=== PATIENT | male | born 1975 | race American Indian/Alaskan Native ===

== ENCOUNTER 2021-01-14 18:58 | Emergency (ER) | payer MEDICAID ==
[2021-01-14] MEDS ORDERED: KETOROLAC 30 MG/1 ML INJ IV ONE (19:32)
--- NOTE | 2021-01-14 19:35 | Emergency Department Report ---
ED General Adult HPI - General Chief complaint: Earache Stated complaint: EAR PAIN/SWELLING Source: patient Mode of arrival: Ambulatory Limitations: No Limitations - History of Present Illness Initial comments: Patient is a 45-year-old -Portuguese male with no past medical history presents to the ED with complaint of acute onset persistent severe left ear pain for the last 3 weeks. Patient states that he has been taking [id number] medications for pain initially and also completed a course of azithromycin that was prescribed by his primary care physician with no relief. Patient states that in the last 5 days, the pain of the right ear has worsened and he noticed that the posterior left ear was getting swollen with severe pain in the last 2 days. States that his symptoms got worse in the last 12 hours and he decided come to the ED for evaluation. Patient denies headache, dizziness, nausea, vomiting, fever, chills, cough, sore throat, traumatic injury or hearing loss. MD Complaint: left ear pain; swollen painful postauricular lymph nodes -: Sudden, week(s) (3) Location: head, face, left (left ear pain) Radiation: non-radiation Severity scale (0 -10): 8 Quality: aching, sharp Consistency: constant Improves with: none Worsens with: none Associated Symptoms: denies other symptoms, headaches. denies: confusion, chest pain, cough, diaphoresis, fever/chills, loss of appetite, malaise, nausea/vomiting, seizure, shortness of breath, syncope, weakness, other Treatments Prior to Arrival: none - Related Data Previous Rx's Medication Instructions Recorded Last Taken Type Ciprofloxacin HCl/Dexameth 1 drop OTIC BID #7.5 ml 01/14/21 Unknown Rx [Ciprodex Otic Suspension] Clindamycin [Clindamycin CAP] 300 mg PO Q6HR #80 capsule 01/14/21 Unknown Rx Ibuprofen [Motrin] 600 mg PO Q8H PRN #30 tablet 01/14/21 Unknown Rx Allergies Allergy/AdvReac Type Severity Reaction Status Date / Time No Known Allergies Allergy Unverified 01/14/21 19:13 ED Review of Systems ROS: Stated complaint: EAR PAIN/SWELLING Other details as noted in HPI Constitutional: denies: chills, fever Eyes: denies: eye pain, eye discharge, vision change ENT: ear pain (Left ear pain). denies: throat pain Respiratory: denies: cough, shortness of breath, wheezing Cardiovascular: denies: chest pain, palpitations Endocrine: no symptoms reported Gastrointestinal: denies: abdominal pain, nausea, diarrhea Genitourinary: denies: urgency, dysuria Musculoskeletal: denies: back pain, joint swelling, arthralgia Skin: denies: rash, lesions Neurological: denies: headache, weakness, paresthesias Psychiatric: denies: anxiety, depression Hematological/Lymphatic: denies: easy bleeding, easy bruising ED Past Medical Hx - Past Medical History Previous Medical History?: No - Surgical History Past Surgical History?: No - Social History Smoking Status: Current Every Day Smoker Substance Use Type: None - Medications Home Medications: Home Medications Medication Instructions Recorded Confirmed Last Taken Type Ciprofloxacin HCl/Dexameth 1 drop OTIC BID #7.5 ml 01/14/21 Unknown Rx [Ciprodex Otic Suspension] Clindamycin [Clindamycin CAP] 300 mg PO Q6HR #80 capsule 01/14/21 Unknown Rx Ibuprofen [Motrin] 600 mg PO Q8H PRN #30 tablet 01/14/21 Unknown Rx ED Physical Exam - General Limitations: No Limitations General appearance: alert, in no apparent distress - Head Head exam: Present: atraumatic, normocephalic, normal inspection - Eye Eye exam: Present: normal appearance, PERRL, EOMI Pupils: Present: normal accommodation - ENT ENT exam: Present: normal orophraynx, mucous membranes moist, other (Erythematous bulging left tympanic membrane with purulent effusion; palpable swollen tender posterior right mastoid) - Neck Neck exam: Present: normal inspection, full ROM, lymphadenopathy (Severe left postauricular lymphadenopathy) - Respiratory Respiratory exam: Present: normal lung sounds bilaterally. Absent: respiratory distress, wheezes, rhonchi, stridor, chest wall tenderness, accessory muscle use, decreased breath sounds, prolonged expiratory - Cardiovascular Cardiovascular Exam: Present: regular rate, normal rhythm, normal heart sounds. Absent: systolic murmur, diastolic murmur, rubs, gallop - GI/Abdominal GI/Abdominal exam: Present: soft, normal bowel sounds. Absent: tenderness, guarding, rebound, hyperactive bowel sounds, hypoactive bowel sounds, organomegaly - Extremities Exam Extremities exam: Present: normal inspection, full ROM, normal capillary refill - Back Exam Back exam: Present: normal inspection, full ROM. Absent: tenderness, CVA tenderness (R), CVA tenderness (L), muscle spasm, paraspinal tenderness, vertebral tenderness - Neurological Exam Neurological exam: Present: alert, oriented X3, CN II-XII intact, normal gait, reflexes normal - Psychiatric Psychiatric exam: Present: normal affect, normal mood - Skin Skin exam: Present: warm, dry, intact, normal color. Absent: rash ED Course Vital Signs 01/14/21 19:08 Temperature 98.2 F Pulse Rate 68 Respiratory 18 Rate Blood Pressure 144/98 O2 Sat by Pulse 97 Oximetry ED Medical Decision Making - Lab Data Result diagrams: 01/14/21 19:38 01/14/21 19:38 - Radiology Data Findings [facility] [address] [place] [address] Cat Scan Report Signed Patient: ASHLY ALANIZ MR#: [id number] : 1975 Acct:[id number] Age/Sex: 45 / M ADM Date: 01/14/21 Loc: ED Attending Dr: Ordering Physician: REJI CAMPBELL Date of Service: 01/14/21 Procedure(s): CT head/brain wo con Accession Number(s): [id number] cc: REJI CAMPBELL CT BRAIN: 01/14/2021 INDICATION / CLINICAL INFORMATION: Ear pain, painful mastoid: r/o left mastoiditis. COMPARISON: None available. FINDINGS: BRAIN/INTRACRANIAL STRUCTURES: Unenhanced CT images of the brain demonstrate no evidence of acute intracranial abnormality. Ventricles and sulci are normal in size and shape. There is no evidence of acute ischemic injury, hemorrhage, or mass. There are no abnormal extra- axial fluid collections. Bone windows demonstrate complete opacification of the left mastoid air cells, mastoid antrum, and middle ear cavity. The osseous lateral aspect of the lower mastoid air cells is somewhat irregular, which may be evidence of osteomyelitis changes. In addition, there is a cellulitic soft tissue swelling in the scalp overlying the temporal bone and mastoid tip, with no definite evidence of fluid collection. The right temporal bone is unremarkable. EXTRACRANIAL STRUCTURES: Unremarkable. IMPRESSION: 1. Negative unenhanced CT of the brain 2. Left temporal bone airspace opacification, with possible osteomyelitis of the mastoid tip, associated with overlying cellulitic soft tissue changes. All CT scans at this location are performed using dose reduction to ALARA by means of automated exposure control. Signer Name: Nikhil Winchester MD Signed: 01/14/2021 8:01 PM Workstation Name: [id number] Transcribed By: PRATEEK Dictated By: Nikhil Winchester MD Electronically Authenticated By: Nikhil Winchester MD Signed Date/Time: 01/14/212000 DD/ 54 TD/TT: - Medical Decision Making This is a 45-year-old -Portuguese male with no past medical history present s to the ED with complaint of acute onset persistent severe left ear pain for the last 3 weeks. Patient states that he has been taking [id number] medications for pain initially and also completed a course of azithromycin that was prescribed by his primary care physician with no relief. Patient states that in the last 5 days, the pain of the right ear has worsened and he noticed that the posterior left ear was getting swollen with severe pain in the last 2 days. In the ED, patient is alert and oriented x3 and is not in distress. Patient was treated for pain in the ED and lab test results were reviewed and are all nonactionable. Patient also received clindamycin 900 mg IV x1. The h ead CT scan without contrast was negative for unenhanced CT of the brain but also showed left temporal bone airspace opacification, with possible osteomyelitis of the mastoid tip, associated with overlying cellulitic soft tissue changes. On reevaluation, patient's pain is well controlled medications. These findings are discussed with the ED attending physician Dr. Mary Soto who agreed with the plan of care to discharge the patient home on oral antibiotics and pain medications, and to give him a referral for an outpatient follow-up to the ENT physician Dr. Vallecillo for reevaluation. I discussed this plan with the patient who agreed and promised to comply and follow-up with the ENT physician. Patient was otherwise advised return to the ED immediately if symptoms get worse. - Differential Diagnosis Otitis media; mastoiditis; sinusitis; lymphadenopathy Critical care attestation.: If time is entered above; I have spent that time in minutes in the direct care of this critically ill patient, excluding procedure time. ED Disposition Clinical Impression: Acute otitis media with effusion of left ear, Unspecified mastoiditis, left ear Disposition: - TO HOME OR SELFCARE Is pt being admited?: No Does the pt Need Aspirin: No Condition: Stable Instructions: Osteomyelitis, Adult, Otitis Media, Adult, [id number], Otitis Media (ED) Additional Instructions: All lab test results were reviewed and are all nonactionable. The head CT scan without contrast showed no acute intracranial abnormalities or hemorrhage but showed a left temporal bone airspace opacification, with possible osteomyelitis of the mastoid tip, associated with overlying cellulitic soft tissue changes. Therefore take medications including antibiotics as advised, drink plenty of fluids and follow-up with the ENT physician Dr. Vallecillo for follow-up. Contact his office first thing in the morning on Friday, January 15, 2021 to schedule a follow-up appointment. Consider following up with your primary care physician in 7 to 10 days for reevaluation. Prescriptions: Ciprofloxacin HCl/Dexameth [Ciprodex Otic Suspension] 1 drop OTIC BID #7.5 ml Clindamycin [Clindamycin CAP] 300 mg PO Q6HR #80 capsule Ibuprofen [Motrin] 600 mg PO Q8H PRN #30 tablet PRN Reason: Pain Referrals: CELINA VALLECILLO MD [Staff Physician] - 3-5 Days [facility] [Provider Group] - 7-10 days Forms: Work/School Release Form(ED) Time of Disposition: 22:47 Print Language: INDONESIAN
[2021-01-14 19:39] VITALS: BP 144/98
[2021-01-14 19:53] LABS: Basophils % (Auto) 0.4 % (0.0-1.8); Eosinophils # (Auto) 0.1 K/mm3 (0.0-0.4); Eosinophils % (Auto) 1.3 % (0.0-4.3); Hematocrit 35.4 % (35.5-45.6); Hemoglobin 11.7 gm/dl (11.8-15.2); Lymphocytes # (Auto) 1.3 K/mm3 (1.2-5.4); Lymphocytes % (Auto) 18.1 % (13.4-35.0); Mean Corpuscular HGB Conc 33 % (32-34); Mean Corpuscular Volume 97 fl (84-94); Monocytes # (Auto) 0.9 K/mm3 (0.0-0.8); Monocytes % (Auto) 11.8 % (0.0-7.3); Platelet Count 242 K/mm3 (140-440); Red Blood Count 3.65 M/mm3 (3.65-5.03); Red Cell Distribution Width 12.9 % (13.2-15.2)
--- NOTE | 2021-01-14 20:06 | Cat Scan Report ---
CT BRAIN: 01/14/2021 INDICATION / CLINICAL INFORMATION: Ear pain, painful mastoid: r/o left mastoiditis. COMPARISON: None available. FINDINGS: BRAIN/INTRACRANIAL STRUCTURES: Unenhanced CT images of the brain demonstrate no evidence of acute int racranial abnormality. Ventricles and sulci are normal in size and shape. There is no evidence of acute ischemic injury, hemorrhage, or mass. There are no abnormal extra-axial fluid collections. Bone windows demonstrate complete opacification of the left mastoid air cells, mastoid antrum, and mi ddle ear cavity. The osseous lateral aspect of the lower mastoid air cells is somewhat irregular, whi ch may be evidence of osteomyelitis changes. In addition, there is a cellulitic soft tissue swelling in the scalp overlying the temporal bone and mastoid tip, with no definite evidence of fluid collecti on. The right temporal bone is unremarkable. EXTRACRANIAL STRUCTURES: Unremarkable. IMPRESSION: 1. Negative unenhanced CT of the brain 2. Left temporal bone airspace opacification, with possible osteomyelitis of the mastoid tip, associa morenita with overlying cellulitic soft tissue changes. All CT scans at this location are performed using dose reduction to ALARA by means of automated expos ure control. Signer Name: Nikhil Winchester MD Signed: 01/14/2021 8:01 PM Workstation Name: [id number]
[2021-01-14 20:08] LABS: Alanine Aminotransferase 8 units/L (7-56); Albumin 3.5 g/dL (3.9-5); Blood Urea Nitrogen 9 mg/dL (9-20); Calcium 8.8 mg/dL (8.4-10.2); Hemolysis Index 17
[2021-01-14 20:13] LABS: BUN/Creatinine Ratio 13
== END 2021-01-15 01:00 | disposition home or self-care (01) ==
LOC: ED 18:58
DX: H65.192 Other acute nonsuppurative otitis media, left ear (principal); H70.92 Unspecified mastoiditis, left ear; R51.9 Headache, unspecified; F17.200 Nicotine dependence, unspecified, uncomplicated; Z79.1 Long term (current) use of non-steroidal anti-inflammatories (NSAID); Z79.2 Long term (current) use of antibiotics; Z79.899 Other long term (current) drug therapy
CPT/HCPCS: 36415; 70450; 80053; 85025; 96365; 96375; 99284; J1885